=== PATIENT | male | born 1990 | race African-American/Black ===

== ENCOUNTER 2020-10-06 18:45 | Emergency (ER) | payer OTHER ==
[~2020-10-06] VITALS: Ht 182.9 cm; Wt 95.3 kg
[2020-10-06 19:28] LABS: ABSOLUTE BASOPHILS 0.1 thou/uL (0.0-0.2); ABSOLUTE EOSINOPHILS 0.1 thou/uL (0.0-0.7); ABSOLUTE LYMPHOCYTES 2.2 thou/uL (0.8-5.3); ABSOLUTE MONOCYTES 0.4 thou/uL (0.0-1.2); ABSOLUTE NEUTROPHILS 2.2 thou/uL (1.6-8.1); BASOPHILS 1.5 %; EOSINOPHILS 2.1 %; HEMATOCRIT 42.3 % (42.0-52.0); HEMOGLOBIN 14.6 gm/dL (14.0-18.0); MCH 31.6 pg (26.0-34.0); MCHC 34.5 g/dL (28.0-37.0); MCV 91.6 fL (80.0-100.0); MONOCYTES 8.8 %; MPV 8.3 fl. (7.2-11.1); NUCLEATED RBCS 0 /100WBC; PLATELET COUNT* 248 thou/uL (150-400); POLYS 43.6 %; RBC 4.62 mil/uL (4.50-6.00)
[2020-10-06 19:37] LABS: CALCIUM 8.8 mg/dL (8.5-10.1); CREATININE 1.2 mg/dL (0.6-1.3)
[2020-10-06 19:41] LABS: ALBUMIN 3.9 g/dL (3.4-5.0); TOTAL BILIRUBIN 0.5 mg/dL (<0.1-1.0); TOTAL PROTEIN 7.7 g/dL (6.4-8.2)
[2020-10-06] MEDS ORDERED: TORADOL 10 MG T10 MG PO (21:16)
[2020-10-06] MEDS ORDERED: MEDROLDOSEPACK PO (21:16)
[2020-10-06 21:30] VITALS: BP 146/75
--- NOTE | 2020-10-07 10:50 | EKG ---
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1990 Requested By: Natalee Patiño Order Number: [id number] MD: Homer Schumacher Measurements Intervals [place] Rate: 79 P: 43 [place]: 132 QRS: 86 QRSD: 111 T: 6 QT: 347 QTc: 398 Interpretive Statements Sinus rhythm High ST segment takeoff over the anterior precordium most compatible with a normal variant Nonspecific inferior ST-T abnormalities No previous ECG available for comparison Electronically Signed On 10-07-2020 10:50:28 CDT by Homer Schumacher [email or web address] <ELECTRONICALLY SIGNED> By: Homer Schumacher MD, FACC 10/07/20 1050 1854 1854 Homer Schumacher MD, [facility] /EPI
--- NOTE | 2020-10-07 10:55 | EKG ---
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1990 Requested By: Natalee Patiño Order Number: [id number] MD: Homer Schumacher Measurements Intervals [place] Rate: 64 P: 21 [place]: 131 QRS: 90 QRSD: 111 T: 20 QT: 377 QTc: 389 Interpretive Statements Sinus rhythm Borderline right axis deviation ST elev, probable normal early repol pattern Compared to ECG 10/06/2020 18:54:23 Early repolarization pattern persists Electronically Signed On 10-07-2020 10:55:14 CDT by Homer Schumacher [email or web address] <ELECTRONICALLY SIGNED> By: Homer Schumacher MD, [facility] 10/07/20 1055 11 11 Homer Schumacher MD, [facility] /EPI
== END 2020-10-06 21:30 | disposition home or self-care (01) ==
LOC: M.ERS 18:45
PROVIDERS: Personal Emergency Response Attendant
DX: R07.89 Other chest pain (principal); Z20.822 Contact with and (suspected) exposure to COVID-19

== ENCOUNTER 2020-10-30 23:22 | Emergency (ER) | payer OTHER ==
[~2020-10-30] VITALS: Ht 182.9 cm; Wt 95.3 kg
[~2020-10-30 23:22] MED LIST: MEDROLDOSEPACK PO; TORADOL 10 MG T10 MG PO
[2020-10-31 01:04] VITALS: BP 126/94
== END 2020-10-31 00:55 | disposition left against medical advice (07) ==
LOC: M.ERS 23:22
DX: Z53.21 Procedure and treatment not carried out due to patient leaving prior to being seen by health care provider (principal)

== ENCOUNTER 2021-01-18 17:01 | Emergency (ER) | payer OTHER ==
[~2021-01-18] VITALS: Ht 182.9 cm; Wt 90.7 kg
[2021-01-18 17:47] LABS: URINE BILIRUBIN NEGATIVE (Negative); URINE BLOOD 1+ (Negative); URINE CLARITY CLEAR; URINE COLOR YELLOW; URINE GLUCOSE-RANDOM NEGATIVE (Negative); URINE KETONES TRACE (Negative); URINE LEUKOCYTES 1+ (Negative); URINE NITRITE NEGATIVE (Negative); URINE PROTEIN NEGATIVE (Negative); URINE SPECIFIC GRAVITY 1.025 (1.005-1.030)
[2021-01-18 18:06] LABS: BACTERIA 1-9 Few /HPF (None Seen); SQUAMOUS 4-10 Moderate /LPF (0-3)
[2021-01-18 18:07] LABS: CASTS None Seen /LPF (None Seen); MUCUS 4-6 Moderate strn/LPF (None Seen); URINE WBC 0-5 Rare /HPF (0-5)
[2021-01-18 18:08] LABS: CALCIUM OXALATE 0-3 Few /LPF (None Seen)
[2021-01-18 19:15] VITALS: BP 149/92
== END 2021-01-18 19:15 | disposition home or self-care (01) ==
LOC: M.ERS 17:01
PROVIDERS: Emergency Medicine
DX: N39.0 Urinary tract infection, site not specified (principal); F17.210 Nicotine dependence, cigarettes, uncomplicated